=== PATIENT | female | born 1985 | race Caucasian/White ===

== ENCOUNTER 2017-11-29 08:59 | Inpatient (IN) | payer OTHER, MEDICAID ==
[~2017-11-29 08:59] MED LIST: Bupivacaine 0.5%/EPINEPHrine 1:200,000 50 ML MDV ONE; Meropenem 500 MG SDV ONE
[2017-11-29] MEDS ORDERED: Dextrose 5%-Lactated Ringers 1,000 ML IV SCH (10:00)
[2017-11-29] MEDS ORDERED: Acetaminophen 500 MG Tab PO ONE (10:00)
[2017-11-29] MEDS ORDERED: Acetaminophen Soln 650 MG/20.3 ML UD Cup PO ONE (10:00)
[2017-11-29] MEDS: Albuterol/Ipratropium 3.0-0.5 MG/3 ML Neb Soln NEB ONE ×2 (10:48→16:43)
[2017-11-29] MEDS ORDERED: ceFAZolin 2 GM in Premix Bag 1 BAG IV ONE ×4 (11:15)
[2017-11-29] MEDS ORDERED: Ropivacaine 38 ML, Dexamethasone 8 MG, EPINEPHrine 0.4 MG, Sodium Chloride 0.9% 39.6 ML NERVRT SCH ×4 (11:30)
[2017-11-29] MEDS ORDERED: Ketamine 500 MG/5 ML MDV IV SCH (11:30)
[2017-11-29] MEDS ORDERED: Lidocaine 0.4%/D5W 2 GM/500 ML BAG IV SCH (11:30)
[2017-11-29] MEDS ORDERED: Lidocaine 2% 100 MG/5 ML Syringe IVPUSH ONE (11:30)
[2017-11-29] MEDS ORDERED: fentaNYL 250 MCG/5 ML SDV ONE ×2 (11:35→14:17)
[2017-11-29] MEDS ORDERED: Rocuronium 50 MG/5 ML Vial ONE ×2 (11:36→14:16)
[2017-11-29] MEDS ORDERED: Neostigmine Methylsulfate 1 MG/ML 5 ML Syringe ONE (11:36)
[2017-11-29] MEDS ORDERED: Propofol 200 MG/20 ML SDV ONE (11:36)
[2017-11-29] MEDS ORDERED: Ondansetron 4 MG/2 ML SDV ONE (11:36)
[2017-11-29] MEDS ORDERED: Dexamethasone 4 MG/ML SDV ONE (11:36)
[2017-11-29] MEDS ORDERED: Linezolid 200 MG/100 ML Bag IRR ONE (14:03)
[2017-11-29] MEDS ORDERED: HYDROmorphone/Normal Saline 15 MG/30 ML PCA IV PRN (14:31)
[2017-11-29] MEDS ORDERED: Naloxone 0.4 MG/ML SDV IV PRN (14:38)
[2017-11-29] MEDS ORDERED: Lactated Ringers 1,000 ML ONE (14:46)
[2017-11-29] MEDS ORDERED: hydrOXYzine HCl 100 MG/2 ML SDV IM PRN (16:21)
[2017-11-29] MEDS ORDERED: hydrOXYzine HCl 25 MG Tab PO PRN (16:21)
[2017-11-29] MEDS ORDERED: Ondansetron 4 MG/2 ML SDV IV PRN (16:21)
[2017-11-29] MEDS ORDERED: Albuterol/Ipratropium 3.0-0.5 MG/3 ML Neb Soln INH PRN (16:22)
[2017-11-29] MEDS ORDERED: diphenhydrAMINE 25 MG Cap PO PRN (16:25)
[2017-11-29] MEDS ORDERED: Iron Sucrose Complex 500 MG in Sodium Chloride 0.9% 250 ML IV ONE (18:00)
[2017-11-29] MEDS: Dextrose 5%-Lactated Ringers 1,000 ML IV SCH (18:36)
[2017-11-29] MEDS ORDERED: Benzocaine/Cetylpyridinium/Menthol Lozenge MUCMEM PRN (20:13)
[2017-11-29] MEDS: traZODone 50 MG Tab PO SCH (20:36)
[2017-11-29] MEDS ORDERED: Scopolamine 1.5 MG Transdermal Patch TRDERM PRN (20:54)
[2017-11-29] MEDS ORDERED: Lactated Ringers 500 ML IV SCH (21:00)
[2017-11-29] MEDS: ceFAZolin 2 GM in Premix Bag 1 BAG IV SCH (21:54)
[2017-11-29] MEDS: Formoterol/Mometasone 200-5 MCG 8.8 GM Inhaler IH SCH (21:54)
[2017-11-30] MEDS: Dextrose 5%-Lactated Ringers 1,000 ML IV SCH ×2 (00:51→05:51)
[2017-11-30] MEDS: ceFAZolin 2 GM in Premix Bag 1 BAG IV SCH ×2 (05:51→12:08)
[2017-11-30] MEDS: Formoterol/Mometasone 200-5 MCG 8.8 GM Inhaler IH SCH ×2 (07:20→20:58)
--- NOTE | 2017-11-30 08:29 | PCM.SURGPN ---
- General Info Date of Service: 11/30/17 Date of Surgery/Procedure: 11/29/17 POD#: 1 Post-Op Diagnosis: S/P panniculectomy and incarcerated incisional hernia repair with mesh Admission Diagnosis/Problem: Hernia (Also, Pannus) Functional Status: Reports: Pain Controlled, Tolerating Diet, Ambulating, Urinating Pain Score: 3 - Review of Systems General: Reports: No Symptoms HEENT: Reports: No Symptoms Pulmonary: Reports: No Symptoms Cardiovascular: Reports: No Symptoms Gastrointestinal: Reports: Abdominal Pain (upper, midline pain is sore/achy) Genitourinary: Reports: No Symptoms Musculoskeletal: Reports: No Symptoms Skin: Reports: No Symptoms Neurological: Reports: No Symptoms Psychiatric: Reports: No Symptoms - Patient Data Vitals - Most Recent: Last Vital Signs Temp 36.1 C 11/30/17 07:36 Pulse 72 11/30/17 07:36 Resp 16 11/30/17 07:36 BP 107/52 L 11/30/17 07:36 Pulse Ox 93 L 11/30/17 07:53 Weight - Most Recent: 76.657 kg I&O - Last 24 Hours: Intake & Output 11/29/17 11/30/17 11/30/17 22:59 06:59 14:59 Intake Total 549 2708 Output Total 403 1125 400 Balance 146 1583 -400 Lab Results Last 24 Hrs: Laboratory Results - last 24 hr 11/29/17 11/29/17 11/29/17 Range/Units 09:35 09:35 11:09 WBC 6.8 (4.5-11.0) K/uL RBC 4.61 (3.30-5.50) M/uL Hgb 13.4 (12.0-15.0) g/dL Hct 41.1 (36.0-48.0) % MCV 89 (80-98) fL MCH 29 (27-31) pg MCHC 33 (32-36) % Plt Count 303 (150-400) K/uL Sodium 139 L (140-148) mmol/L Potassium 4.1 (3.6-5.2) mmol/L Chloride 107 (100-108) mmol/L Carbon Dioxide 25 (21-32) mmol/L Anion Gap 11.1 (5.0-14.0) mmol/L BUN 13 (7-18) mg/dL Creatinine 0.7 (0.6-1.0) mg/dL Est Cr Clr Drug Dosing 100.55 mL/min Estimated GFR (MDRD) > 60 (>60) Glucose 86 (74-106) mg/dL Calcium 8.3 L (8.5-10.1) mg/dL Phosphorus 3.6 (2.5-4.9) mg/dL Magnesium 2.0 (1.8-2.4) mg/dL Ferritin 15 (8-388) ng/ml Total Bilirubin 1.0 (0.2-1.0) mg/dL AST 21 (15-37) U/L ALT 36 (12-78) U/L Alkaline Phosphatase 117 H (46-116) U/L Total Protein 6.7 (6.4-8.2) g/dL Albumin 3.9 (3.4-5.0) g/dL Globulin 2.8 (2.3-3.5) g/dL Albumin/Globulin Ratio 1.4 (1.2-2.2) Urine HCG, Qual Negative Med Orders - Current: Current Medications Albuterol/Ipratropium (Duoneb 3.0-0.5 Mg/3 Ml) 3 ml INH ASDIRECTED PRN PRN Reason: Shortness of Breath Benzocaine/Menthol (Cepacol Sore Throat) 1 lozenge MUCMEM ASDIRECTED PRN PRN Reason: Sore Throat Last Admin: 11/29/17 20:40 Dose: 1 jose Diphenhydramine HCl (Benadryl) 50 mg PO BEDTIME PRN PRN Reason: SLEEP Escitalopram Oxalate (Lexapro) 20 mg PO DAILY ROG[facility]IO Hydromorphone HCl (Dilaudid Care Management Assistant 15 Mg In Ns 30 Ml) 0 mg IV ASDIRECTED PRN; Protocol PRN Reason: Pain Last Admin: 11/29/17 14:45 Dose: 0.3 mg Hydromorphone HCl (Dilaudid) 2 - 4 mg PO Q4H PRN PRN Reason: Pain Hydroxyzine HCl (Vistaril) 100 mg IM Q4H PRN PRN Reason: PAIN Hydroxyzine HCl (Atarax) 100 mg PO Q4H PRN PRN Reason: PAIN Dextrose/Lactated Ringer's (Dextrose 5%-Lactated Ringers) 1,000 mls @ 175 mls/ hr IV ASDIRECTED [facility] Last Admin: 11/30/17 05:51 Dose: 175 mls/hr Cefazolin Sodium/Dextrose 2 gm (/ Premix) 50 mls @ 100 mls/hr IV Q8H [facility] Stop: 11/30/17 13:29 Last Admin: 11/30/17 05:51 Dose: 100 mls/hr Iron Sucrose 500 mg/ Sodium (Chloride) 275 mls @ 68.75 mls/hr IV ONETIME ONE Stop: 11/30/17 19:59 Mometasone Furoate/Formoterol Fumar (Dulera 200-5 Mcg) 2 puff IH BIDRT [facility] Last Admin: 11/30/17 07:20 Dose: 2 puff Mupirocin (Bactroban Oint) 0 gm TOP BID [facility] Naloxone HCl (Narcan) 0.1 mg IV ASDIRECTED PRN PRN Reason: decreased respiratory rate Check Scopolamine (Patch Daily) 1 each .XX DAILY [facility] Ondansetron HCl (Zofran) 4 mg IV Q4H PRN PRN Reason: N/V Scopolamine (Transderm-Scop) 1.5 mg TRDERM Q72H PRN PRN Reason: Dizziness Last Admin: 11/29/17 21:53 Dose: 1.5 mg Trazodone HCl (Trazodone) 50 mg PO BEDTIME [facility] Last Admin: 11/29/17 20:36 Dose: Not Given Valacyclovir HCl (Valtrex) 1,000 mg PO DAILY [facility] Discontinued Medications Acetaminophen (Tylenol) 1,000 mg PO ONETIME ONE Stop: 11/29/17 10:01 Last Admin: 11/29/17 09:53 Dose: 1,000 mg Albuterol/Ipratropium (Duoneb 3.0-0.5 Mg/3 Ml) 3 ml NEB ONETIME ONE Stop: 11/29/17 11:01 Last Admin: 11/29/17 16:43 Dose: Not Given Bupivacaine HCl/Epinephrine Bitart (Marcaine 0.5%/Epinephrine 1:200,000) Confirm Administered Dose 50 ml .ROUTE .STK-MED ONE Stop: 11/29/17 08:06 Last Admin: 11/29/17 13:48 Dose: 15 ml Ropivacaine 38 ml/Dexamethasone 8 mg/Epinephrine HCl 0.4 mg/ Sodium Chloride 39.6 ml 0 ml NERVRT ASDIRECTED [facility] Last Admin: 11/29/17 13:17 Dose: 80 syringe Dexamethasone (Dexamethasone) Confirm Administered Dose 4 mg .ROUTE .[facility] ONE Stop: 11/29/17 11:37 Fentanyl (Sublimaze) Confirm Administered Dose 250 mcg .ROUTE .[facility] ONE Stop: 11/29/17 11:36 Fentanyl (Sublimaze) Confirm Administered Dose 250 mcg .ROUTE .[facility] ONE Stop: 11/29/17 14:18 Glycopyrrolate () Confirm Administered Dose 1 mg .ROUTE .[facility] ONE Stop: 11/29/17 11:37 Dextrose/Lactated Ringer's (Dextrose 5%-Lactated Ringers) 1,000 mls @ 100 [facility]ls[facility] Admin: 11/29/17 10:08 Dose: 100 mls/hr Cefazolin Sodium/Dextrose 2 gm (/ Premix) 50 mls @ 100 mls/hr IV ONETIME ONE Stop: 11/29/17 11:44 Last Admin: 11/29/17 12:59 Dose: 100 mls/hr Lidocaine HCl/Dextrose (Lidocaine 2 Gm/D5w 500 Ml) 2 gm in 500 mls @ 22.5 mls/ hr IV .[id number] [facility] PRN Reason: 1.5 MG/MIN Stop: 11/30/17 12:00 Last Admin: 11/29/17 16:33 Dose: 1.5 mg/min, 22.5 mls/hr Ketamine HCl 100 mg/ Sodium (Chloride) 100 mls @ 16.5 mls/hr IV ASDIRECTED [facility] PRN Reason: 5 MCG/KG/MIN Linezolid (Zyvox) Confirm Administered Dose 100 mls @ as directed .ROUTE .[facility] ONE Stop: 11/29/17 10:54 Lactated Ringer's (Ringers, Lactated) Confirm Administered Dose 1,000 mls @ as directed .ROUTE .[facility] ONE Stop: 11/29/17 14:47 Iron Sucrose 500 mg/ Sodium (Chloride) 275 mls @ 68.75 mls/hr IV ONETIME ONE Stop: 11/29/17 21:59 Last Admin: 11/29/17 18:07 Dose: 68.75 mls/hr Lactated Ringer's (Ringers, Lactated) 500 mls @ 500 mls/hr IV ASDIRECTED [facility]OG[facility] Ketamine HCl (Ketalar) 28 mg IV ASDIRECTED [facility] Lidocaine HCl (Xylocaine 2%) 95 mg IVPUSH ONETIME ONE Stop: 11/29/17 11:31 Last Admin: 11/29/17 16:33 Dose: Not Given Linezolid (Zyvox) 200 mg IRR .STK-MED ONE Stop: 11/29/17 14:04 Last Admin: 11/29/17 14:03 Dose: 200 mg Meropenem (Merrem) Confirm Administered Dose 500 mg .ROUTE .STK-MED ONE Stop: 11/29/17 08:05 Last Admin: 11/29/17 14:03 Dose: 500 mg Neostigmine Methylsulfate (Neostigmine) Confirm Administered Dose 5 mg .ROUTE .STK-MED ONE Stop: 11/29/17 11:37 Ondansetron HCl (Zofran) Confirm Administered Dose 4 mg .ROUTE .STK-MED ONE Stop: 11/29/17 11:37 Propofol (Diprivan 20 Ml) Confirm Administered Dose 200 mg .ROUTE .STK-MED ONE Stop: 11/29/17 11:37 Rocuronium [place] (Zemuron) Confirm Administered Dose 50 mg .ROUTE .STK-MED ONE Stop: 11/29/17 11:37 Rocuronium [place] (Zemuron) Confirm Administered Dose 50 mg .ROUTE .STK-MED ONE Stop: 11/29/17 14:17 - Exam Wound/Incisions: Healing Well, Dressing Dry and Intact, Drainage ([address] draining serosanginous liquid) General: Alert, Oriented, Cooperative, No Acute Distress HEENT: Pupils Equal Lungs: Clear to Auscultation, Normal Respiratory Effort Cardiovascular: Regular Rate, Regular Rhythm GI/Abdominal Exam: Normal Bowel Sounds, Soft, No Distention Extremities: Non-Tender, No Pedal Edema Skin: Warm, Dry, Intact Neurological: No New Focal Deficit Psy/Mental Status: Alert, Normal Affect, Normal Mood - Problem List Review Problem List Initiated/Reviewed/Updated: Yes - My Orders Last 24 Hours: Active Orders 24 hr Category Date Time Status Admission Status [Patient Status] [ADT] Routine ADT 11/29/17 14:40 Active Ambulate [RC] QID Care 11/29/17 16:21 Active Cardiac Monitoring Discontinue [RC] Click to Edit Care 11/30/17 07:30 Active Communication Order [RC] BID Care 11/30/17 09:00 Active Drain Management [RC] ASDIRECTED Care 11/29/17 16:24 Active Elevate Head of Bed [Head of Bed Elevation] [RC] Care 11/29/17 16:22 Active ASDIRECTED Insert Joseph Catheter [Insert Urinary Catheter] [OM.PC] Care 11/29/17 16:30 Ordered Q24H Intake and Output [RC] ASDIRECTED Care 11/29/17 16:25 Active Overnight Pulse Oximetry [RC] Click to Edit Care 11/29/17 16:17 Active RT Aerosol Therapy [RC] ASDIRECTED Care 11/29/17 11:00 Active RT Incentive Spirometry [RC] ASDIRECTED Care 11/29/17 16:23 Active Telemetry Monitoring [Cardiac Monitoring] [RC] .As Care 11/29/17 14:40 Active Directed Turn, Cough, Deep Breathe [RC] .PRN Care 11/29/17 16:23 Active Up to Chair [RC] QID Care 11/29/17 16:21 Active NPO [Nothing Per Oral Diet] [DIET] Diet 11/29/17 Dinner Active Albuterol/Ipratropium [DuoNeb 3.0-0.5 MG/3 ML] Med 11/29/17 16:22 Active 3 ml INH ASDIRECTED PRN Benzocaine/Cetylpyrd/Menthol [Cepacol Sore Throat] Med 11/29/17 20:13 Active 1 lozenge MUCMEM ASDIRECTED PRN Dextrose 5%-Lactated Ringers 1,000 ml Med 11/29/17 16:30 Active IV ASDIRECTED Escitalopram [Lexapro] Med 11/30/17 09:00 Active 20 mg PO DAILY HYDROmorphone [Dilaudid] Med 11/30/17 08:03 Active 2 - 4 mg PO Q4H PRN HYDROmorphone/Normal Saline [Dilaudid FRUIT HARVESTER 15 MG in NS Med 11/29/17 14:31 Active 30 ML] See Protocol IV ASDIRECTED PRN Iron Sucrose Complex [Venofer] 500 mg Med 11/30/17 16:00 Active Sodium Chloride 0.9% [Normal Saline] 250 ml IV ONETIME Mometasone/Formoterol [Dulera 200-5 MCG] Med 11/29/17 21:00 Active 2 puff IH BIDRT Mupirocin Oint [Bactroban Oint] Med 11/30/17 09:00 Active 0 gm TOP BID Naloxone [Narcan] Med 11/29/17 14:38 Active 0.1 mg IV ASDIRECTED PRN Non-Formulary Medication [NF Drug] Med 11/30/17 09:00 Active 1 each .XX DAILY Ondansetron [Zofran] Med 11/29/17 16:21 Active 4 mg IV Q4H PRN Scopolamine [Transderm-Scop] Med 11/29/17 20:54 Active 1.5 mg TRDERM Q72H PRN ceFAZolin [Ancef] 2 gm Med 11/29/17 21:00 Active Premix Bag 1 bag IV Q8H diphenhydrAMINE [Benadryl] Med 11/29/17 16:25 Active 50 mg PO BEDTIME PRN hydrOXYzine HCl [Atarax] Med 11/29/17 16:21 Active 100 mg PO Q4H PRN hydrOXYzine HCl [Vistaril] Med 11/29/17 16:21 Active 100 mg IM Q4H PRN traZODone Med 11/29/17 21:00 Active 50 mg PO BEDTIME valACYclovir [Valtrex] Med 11/30/17 09:00 Active 1,000 mg PO DAILY Pulse Oximetry Continuous Monitoring [OM.PC] Routine Oth 11/29/17 14:40 Ordered Sequential Compression Device [OM.PC] Routine Oth 11/29/17 09:30 Ordered Sequential Compression Device [OM.PC] Routine Oth 11/29/17 16:22 Ordered Medication Orders Albuterol/Ipratropium (Duoneb 3.0-0.5 Mg/3 Ml) 3 ml INH ASDIRECTED PRN PRN Reason: Shortness of Breath Benzocaine/Menthol (Cepacol Sore Throat) 1 lozenge MUCMEM ASDIRECTED PRN PRN Reason: Sore Throat Last Admin: 11/29/17 20:40 Dose: 1 jose Diphenhydramine HCl (Benadryl) 50 mg PO BEDTIME PRN PRN Reason: SLEEP Escitalopram Oxalate (Lexapro) 20 mg PO DAILY [facility] Hydromorphone HCl (Dilaudid Care Management Assistant 15 Mg In Ns 30 Ml) 0 mg IV ASDIRECTED PRN; Protocol PRN Reason: Pain Last Admin: 11/29/17 14:45 Dose: 0.3 mg Hydromorphone HCl (Dilaudid) 2 - 4 mg PO Q4H PRN PRN Reason: Pain Hydroxyzine HCl (Vistaril) 100 mg IM Q4H PRN PRN Reason: PAIN Hydroxyzine HCl (Atarax) 100 mg PO Q4H PRN PRN Reason: PAIN Dextrose/Lactated Ringer's (Dextrose 5%-Lactated Ringers) 1,000 mls @ 175 mls/ hr IV ASDIRECTED [facility] Last Admin: 11/30/17 05:51 Dose: 175 mls/hr Infusion: 11/30/17 05:51 Dose: 175 mls/hr Admin: 11/30/17 00:51 Dose: 175 mls/hr Infusion: 11/30/17 00:19 Dose: 175 mls/hr Admin: 11/29/17 18:36 Dose: 175 mls/hr Cefazolin Sodium/Dextrose 2 gm (/ Premix) 50 mls @ 100 mls/hr IV Q8H ROG[facility]IO Stop: 11/30/17 13:29 Last Admin: 11/30/17 05:51 Dose: 100 mls/hr Infusion: 11/29/17 22:24 Dose: 100 mls/hr Admin: 11/29/17 21:54 Dose: 100 mls/hr Iron Sucrose 500 mg/ Sodium (Chloride) 275 mls @ 68.75 mls/hr IV ONETIME ONE Stop: 11/30/17 19:59 Mometasone Furoate/Formoterol Fumar (Dulera 200-5 Mcg) 2 puff IH BIDRT [facility] Last Admin: 11/30/17 07:20 Dose: 2 puff Admin: 11/29/17 21:54 Dose: 2 puff Mupirocin (Bactroban Oint) 0 gm TOP BID [facility]OG[facility]IO Naloxone HCl (Narcan) 0.1 mg IV ASDIRECTED PRN PRN Reason: decreased respiratory rate Check Scopolamine (Patch Daily) 1 each .XX DAILY [facility] Ondansetron HCl (Zofran) 4 mg IV Q4H PRN PRN Reason: N/V Scopolamine (Transderm-Scop) 1.5 mg TRDERM Q72H PRN PRN Reason: Dizziness Last Admin: 11/29/17 21:53 Dose: 1.5 mg Trazodone HCl (Trazodone) 50 mg PO BEDTIME ROG[facility]IO Last Admin: 11/29/17 20:36 Dose: Not Given Valacyclovir HCl (Valtrex) 1,000 mg PO DAILY ROGELIO - Plan Plan (Free Text/Narrative):: Emilee Martell is a 32 year old female who is S/P 1 day of panniculectomy and hernia repair. This morning the patient is doing well. She has minimal pain an is able to ambulate in the halls. She would like to eat today. She will stay one more day for transfer to PO pain medications and her iron infusion. She is urinating well, will take out joseph. She had no further concerns or questions at this time. # S/P Panniculectomy- The patient has minimal pain. She is passing gas but not stool as of yet. She will be progressed to PO pain medications. - Hydromorphone PRN - Tylenol 650 Q4 hr # Chronic issues: - Continue home medications VTE PPX- Pts Megan score is 3. Pt advised to continue moving around. SCD's in bed. Pneumonia PPX- Pt advised to walk around and use incentive spirometry 10 times per hour Code status: Full Fluids: 30 ml/hr LR Diet: Full diet Nausea: Zofran Q4hr PRN Bowel regimen: None at this time Dispo: Patient will likely go home tomorrow. This chart was scribed for Dr. Segal by: Immanuel Donohue, Ms3 Pg # [phone]
[2017-11-30] MEDS ORDERED: Dextrose 5%-Lactated Ringers 1,000 ML IV SCH (08:38)
[2017-11-30] MEDS: valACYclovir 1,000 MG Tab PO SCH (09:00)
[2017-11-30] MEDS: Mupirocin Oint 22 GM Tube TOP SCH ×2 (09:01→20:59)
[2017-11-30] MEDS: Escitalopram 20 MG Tab PO SCH (09:01)
[2017-11-30] MEDS: CHECK SCOPOLAMINE PATCH DAILY SCH (10:36)
[2017-11-30] MEDS: Acetaminophen 325 MG Tab PO PRN ×3 (10:39→19:06)
[2017-11-30] MEDS: HYDROmorphone 2 MG Tab PO PRN ×3 (10:40→19:05)
[2017-11-30] MEDS ORDERED: Iron Sucrose Complex 500 MG in Sodium Chloride 0.9% 250 ML IV ONE (16:00)
[2017-11-30] MEDS: traZODone 50 MG Tab PO SCH (20:58)
[2017-12-01] MEDS: HYDROmorphone 2 MG Tab PO PRN ×2 (03:35→10:10)
[2017-12-01] MEDS: Acetaminophen 325 MG Tab PO PRN ×2 (07:21→11:37)
[2017-12-01] MEDS: Formoterol/Mometasone 200-5 MCG 8.8 GM Inhaler IH SCH (07:27)
[2017-12-01] MEDS: Escitalopram 20 MG Tab PO SCH (09:26)
[2017-12-01] MEDS: CHECK SCOPOLAMINE PATCH DAILY SCH (09:29)
[2017-12-01] MEDS: valACYclovir 1,000 MG Tab PO SCH (09:30)
[2017-12-01] MEDS: Mupirocin Oint 22 GM Tube TOP SCH (09:30)
--- NOTE | 2017-12-01 09:42 | PCM.DCSUM1 ---
Discharge Summary - Hospital Course HPI Initial Comments: Emilee Martell is a 32 year old female who is S/P 1 day of panniculectomy and hernia repair. - Discharge Data Discharge Date: 12/01/17 Discharge Disposition: Home, Self-Care 01 Condition: Good - Patient Summary/Data Operative Procedure(s) Performed: Panniculectomy with hernia repair Complications: None Consults: None - Patient Instructions Diet: Usual Diet as Tolerated, Drink 8-10+ Glasses/Day Activity: As Tolerated, No Lifting Over 10 Pounds (for 6 weeks ) Driving: Do Not Drive (while on pain medications and at least for 2 weeks ) Showering/Bathing: May Shower Wound/Incision Care: Keep Operative Site/Wound Site Clean and Dry Notify Provider of: Fever, Increased Pain, Swelling and Redness, Nausea and/or Vomiting Other/Special Instructions: Strip, empty, measure and record DAMIAN drain 4 times a day - bring record of DAMIAN drainage to clinic appointment. Use incentive inspirometer 10 times every hour while awake for 1 week. - Discharge Plan Prescriptions/Med Rec: HYDROmorphone [Dilaudid] 2 - 4 mg PO Q4H PRN #40 tablet PRN Reason: Pain Home Medications: Home Meds Acetaminophen [Tylenol Solution] 620.8 ml PO Q6H PRN 11/25/17 [History] Calcium Citrate/Vitamin D3 [Calcium Citrate - Vit D Caplet] 1 each PO BID [History] Clindamycin Phos/Benzoyl Perox [Benzaclin Gel] 1 applic TOP DAILY 11/25/17 [ History] Clotrimazole [Lotrimin AF 1% Crm] 1 applic TOP BID 11/25/17 [History] Cyanocobalamin (Vitamin B-12) [Vitamin B-12] 1,000 mcg SL DAILY 11/25/17 [ History] Doxylamine Succinate [Unisom] 1 - 2 tab PO ASDIRECTED 11/25/17 [History] Escitalopram [Lexapro] 20 mg PO ASDIRECTED 11/25/17 [History] Fluticasone/Salmeterol [Advair 250-50 Diskus] 1 puff INH BID 11/25/17 [History] Levonorgestrel [Mirena] 20 mcg VAG ASDIRECTED 11/25/17 [History] Minocycline [Minocin] 50 mg PO DAILY 11/25/17 [History] Pediatric Multivitamin 1 tab PO BID 11/25/17 [History] Propranolol [Inderal] 10 mg PO ASDIRECTED 11/25/17 [History] Vitamin B Complex [B Complex] 1 each PO DAILY 11/25/17 [History] hydrOXYzine Pamoate [Vistaril] 25 mg PO ASDIRECTED 11/25/17 [History] valACYclovir [Valtrex] 1,000 mg PO DAILY 11/25/17 [History] Acetaminophen [Tylenol] 650 mg PO Q4H PRN tablet 12/01/17 [Rx] HYDROmorphone [Dilaudid] 2 - 4 mg PO Q4H PRN #40 tablet 12/01/17 [Rx] Referrals: Tiffanie Pond PA-C [Physician Family Educator] - 12/10/17 9:00 am - Discharge Summary/Plan Comment DC Time >30 min.: No Discharge Summary/Plan Comment: Emilee Martell is a 32 year old female who is S/P 1 day of panniculectomy and hernia repair. POD #1 the patient was transfered to PO pain medications with good control of her pain. On POD #2 the patient had minimal pain. She was comfortable with going home. She was passing gas, urinating well, and tolerating a full diet. She shall return with any signs or symptoms of infection , fever, intractable pain or any other concerns. She had no other questions at this time. - Patient Data Vitals - Most Recent: Last Vital Signs Temp 36.6 C 12/01/17 07:00 Pulse 65 12/01/17 07:00 Resp 18 12/01/17 07:00 BP 110/68 12/01/17 07:00 Pulse Ox 96 12/01/17 07:00 Weight - Most Recent: 76.657 kg I&O - Last 24 hours: Intake & Output 11/30/17 12/01/17 12/01/17 22:59 06:59 14:59 Intake Total 1140 1300 Output Total 1130 570 Balance 10 730 Med Orders - Current: Current Medications Acetaminophen (Tylenol) 650 mg PO Q4H PRN PRN Reason: Headache/Pain Last Admin: 12/01/17 07:21 Dose: 650 mg Albuterol/Ipratropium (Duoneb 3.0-0.5 Mg/3 Ml) 3 ml INH ASDIRECTED PRN PRN Reason: Shortness of Breath Benzocaine/Menthol (Cepacol Sore Throat) 1 lozenge MUCMEM ASDIRECTED PRN PRN Reason: Sore Throat Last Admin: 11/29/17 20:40 Dose: 1 jose Diphenhydramine HCl (Benadryl) 50 mg PO BEDTIME PRN PRN Reason: SLEEP Last Admin: 11/30/17 19:07 Dose: 50 mg Escitalopram Oxalate (Lexapro) 20 mg PO DAILY [facility] Last Admin: 12/01/17 09:26 Dose: 20 mg Hydromorphone HCl (Dilaudid) 2 - 4 mg PO Q4H PRN PRN Reason: Pain Last Admin: 12/01/17 03:35 Dose: 2 mg Hydroxyzine HCl (Vistaril) 100 mg IM Q4H PRN PRN Reason: PAIN Hydroxyzine HCl (Atarax) 100 mg PO Q4H PRN PRN Reason: PAIN Mometasone Furoate/Formoterol Fumar (Dulera 200-5 Mcg) 2 puff IH BIDRT [facility] Last Admin: 12/01/17 07:27 Dose: 2 puff Mupirocin (Bactroban Oint) 0 gm TOP BID [facility] Last Admin: 12/01/17 09:30 Dose: 1 applic Check Scopolamine (Patch Daily) 1 each .XX DAILY [facility] Last Admin: 12/01/17 09:29 Dose: Not Given Scopolamine (Transderm-Scop) 1.5 mg TRDERM Q72H PRN PRN Reason: Dizziness Last Admin: 11/29/17 21:53 Dose: 1.5 mg Trazodone HCl (Trazodone) 50 mg PO BEDTIME [facility] Last Admin: 11/30/17 20:58 Dose: Not Given Valacyclovir HCl (Valtrex) 1,000 mg PO DAILY [facility] Last Admin: 12/01/17 09:30 Dose: Not Given Discontinued Medications Acetaminophen (Tylenol) 1,000 mg PO ONETIME ONE Stop: 11/29/17 10:01 Last Admin: 11/29/17 09:53 Dose: 1,000 mg Albuterol/Ipratropium (Duoneb 3.0-0.5 Mg/3 Ml) 3 ml NEB ONETIME ONE Stop: 11/29/17 11:01 Last Admin: 11/29/17 16:43 Dose: Not Given Bupivacaine HCl/Epinephrine Bitart (Marcaine 0.5%/Epinephrine 1:200,000) Confirm Administered Dose 50 ml .ROUTE .STK-MED ONE Stop: 11/29/17 08:06 Last Admin: 11/29/17 13:48 Dose: 15 ml Ropivacaine 38 ml/Dexamethasone 8 mg/Epinephrine HCl 0.4 mg/ Sodium Chloride 39.6 ml 0 ml NERVRT ASDIRECTED [facility] Last Admin: 11/29/17 13:17 Dose: 80 syringe Dexamethasone (Dexamethasone) Confirm Administered Dose 4 mg .ROUTE .[facility] ONE Stop: 11/29/17 11:37 Fentanyl (Sublimaze) Confirm Administered Dose 250 mcg .ROUTE .STK-MED ONE Stop: 11/29/17 11:36 Fentanyl (Sublimaze) Confirm Administered Dose 250 mcg .ROUTE .[facility] ONE Stop: 11/29/17 14:18 Glycopyrrolate () Confirm Administered Dose 1 mg .ROUTE .STK-MED ONE Stop: 11/29/17 11:37 Hydromorphone HCl (Dilaudid Hazmat Technician 15 Mg In Ns 30 Ml) 0 mg IV ASDIRECTED PRN; Protocol PRN Reason: Pain Last Admin: 11/29/17 14:45 Dose: 0.3 mg Dextrose/Lactated Ringer's (Dextrose 5%-Lactated Ringers) 1,000 mls @ 100 mls/ hr IV ASDIRECTED [facility] Last Admin: 11/29/17 10:08 Dose: 100 mls/hr Cefazolin Sodium/Dextrose 2 gm (/ Premix) 50 mls @ 100 mls/hr IV ONETIME ONE Stop: 11/29/17 11:44 Last Admin: 11/29/17 12:59 Dose: 100 mls/hr Lidocaine HCl/Dextrose (Lidocaine 2 Gm/D5w 500 Ml) 2 gm in 500 mls @ 22.5 mls/ hr IV .[id number] [facility] PRN Reason: 1.5 MG/MIN Stop: 11/30/17 12:00 Last Admin: 11/29/17 16:33 Dose: 1.5 mg/min, 22.5 mls/hr Ketamine HCl 100 mg/ Sodium (Chloride) 100 mls @ 16.5 mls/hr IV ASDIRECTED [facility] PRN Reason: 5 MCG/KG/MIN Linezolid (Zyvox) Confirm Administered Dose 100 mls @ as directed .ROUTE .STK- MED ONE Stop: 11/29/17 10:54 Lactated Ringer's (Ringers, Lactated) Confirm Administered Dose 1,000 mls @ as directed .ROUTE .STK-MED ONE Stop: 11/29/17 14:47 Dextrose/Lactated Ringer's (Dextrose 5%-Lactated Ringers) 1,000 mls @ 175 mls/ hr IV ASDIRECTED [facility] Last Admin: 11/30/17 05:51 Dose: 175 mls/hr Cefazolin Sodium/Dextrose 2 gm (/ Premix) 50 mls @ 100 mls/hr IV Q8H [facility] Stop: 11/30/17 13:29 Last Admin: 11/30/17 12:08 Dose: 100 mls/hr Iron Sucrose 500 mg/ Sodium (Chloride) 275 mls @ 68.75 mls/hr IV ONETIME ONE Stop: 11/29/17 21:59 Last Admin: 11/29/17 18:07 Dose: 68.75 mls/hr Iron Sucrose 500 mg/ Sodium (Chloride) 275 mls @ 68.75 mls/hr IV ONETIME ONE Stop: 11/30/17 19:59 Last Admin: 11/30/17 16:30 Dose: 68.75 mls/hr Lactated Ringer's (Ringers, Lactated) 500 mls @ 500 mls/hr IV ASDIRECTED [facility] Dextrose/Lactated Ringer's (Dextrose 5%-Lactated Ringers) 1,000 mls @ 100 mls/ hr IV ASDIRECTED [facility] Ketamine HCl (Ketalar) 28 mg IV ASDIRECTED [facility] Lidocaine HCl (Xylocaine 2%) 95 mg IVPUSH ONETIME ONE Stop: 11/29/17 11:31 Last Admin: 11/29/17 16:33 Dose: Not Given Linezolid (Zyvox) 200 mg IRR .STK-MED ONE Stop: 11/29/17 14:04 Last Admin: 11/29/17 14:03 Dose: 200 mg Meropenem (Merrem) Confirm Administered Dose 500 mg .ROUTE .STK-MED ONE Stop: 11/29/17 08:05 Last Admin: 11/29/17 14:03 Dose: 500 mg Naloxone HCl (Narcan) 0.1 mg IV ASDIRECTED PRN PRN Reason: decreased respiratory rate Neostigmine Methylsulfate (Neostigmine) Confirm Administered Dose 5 mg .ROUTE .STK-MED ONE Stop: 11/29/17 11:37 Ondansetron HCl (Zofran) Confirm Administered Dose 4 mg .ROUTE .STK-MED ONE Stop: 11/29/17 11:37 Ondansetron HCl (Zofran) 4 mg IV Q4H PRN PRN Reason: N/V Propofol (Diprivan 20 Ml) Confirm Administered Dose 200 mg .ROUTE .STK-MED ONE Stop: 11/29/17 11:37 Rocuronium Glade (Zemuron) Confirm Administered Dose 50 mg .ROUTE .STK-MED ONE Stop: 11/29/17 11:37 Rocuronium Glade (Zemuron) Confirm Administered Dose 50 mg .ROUTE .ST-MED ONE Stop: 11/29/17 14:17 *Q Meaningful Use (DIS) - VTE *Q VTE Criteria *Q: - Stroke *Q Stroke Criteria *Q: - AMI *Q AMI Criteria *Q:
--- NOTE | 2017-12-06 14:20 | OR ---
DATE OF PROCEDURE: 11/29/2017 PREOPERATIVE DIAGNOSES: 1. Incarcerated incisional hernia. 2. Chronic panniculitis. POSTOPERATIVE DIAGNOSES: 1. Incarcerated incisional hernia. 2. Chronic panniculitis. 3. Incarcerated umbilical hernia. PROCEDURE PERFORMED: 1. Open repair of incarcerated incisional hernia with mesh (80817, 41612). 2. Open repair of incarcerated umbilical hernia (81191). 3. Panniculectomy (69296). ANESTHESIA: General. CAGE SUPERVISOR: 1. Tiffanie Pond PA-C. 2. VIOLET Michel3. INDICATION FOR PROCEDURE: The patient presents with a chronically inflamed abdominal pannus, along with associated incarcerated incisional hernia, the latter appears to be related to a previous trocar site. Plan is to proceed with repair of the hernia, most likely with mesh plug takedown technique, along with concurrent panniculectomy. Potential risks of the procedure including bleeding, infection, injury to underlying viscera, possible recurrence of the hernia or infection of the mesh were all reviewed, and the patient wishes to proceed. DETAILS OF PROCEDURE: The patient was taken to the operating room, and after general endotracheal anesthesia was induced, a Gonzalez catheter was inserted and the abdomen prepped and draped. Using the continuous ultrasound guidance, bilateral mid abdominal, transversus abdominis plane blocks were then placed, using the standard solution. Initially, the area of the herniation somewhat superior to the umbilicus was then encountered. This was incised transversely, and this continued down around into the area of the hernia sac, which also contained preperitoneal fat. The latter was excised flush with the underlying fascia, and the defect measured around 3-4 mm. A medium mesh plug was then reduced in terms of volume by cutting its internal petals, then placed into the defect and fixed circumferentially with horizontal mattress sutures of 0 Vicryl stitch. The primary defect was then also enclosed with [id number] stitch of #1 Vicryl stitch. That incision was then separately closed with 3-0 and 4-0 Vicryl stitch and then ashley for the skin. The panniculectomy incision was then made, which included a broad transversely oriented ellipse and continued down through the skin and subcutaneous tissue. At the center of the area, the patient was noted to have an umbilical hernia, which also did contain some incarcerated preperitoneal fat. The latter was excised, along with the overlying pannus. The hernia was repaired with a [id number]-ef-dxdgo stitch of #1 Vicryl stitch. The pannus was reflected off the abdominal wall and delivered from the field. It measured 2.2 pounds. This incision was then drained with 2 Supa-Eddy drains placed superior to the main incision, in each direction, and then closed with 3-0 and 4-0 Vicryl stitch deep and ashley for the skin. Dressing was applied. The patient was taken to the recovery room in satisfactory condition. Physician neurology physician assistant, Tiffanie Pond, played an essential role in assisting in this case, helping to position the patient, retract structures as needed, as well as suturing and cutting sutures when indicated. Her presence improved patient safety and decreased operative time. Magnus Segal MD /[id number]
== END 2017-12-01 12:00 | disposition home or self-care (01) | DRG 988 ==
LOC: JP.SDS 08:59 → JP.MS 08:59 → UNDOADMIN 08:59 → JP.2SS 08:59 → EDSTATUS 09:00 → JP.2SS 14:40 → JP.MS 14:40
PROVIDERS: ADMIT Surgery; ATTEND Surgery
PROC: 0HB7XZZ Excision of Abdomen Skin, External Approach (ICD-10-PCS; principal; 2017-11-29)
PROC: 0WUF0JZ Supplement Abdominal Wall with Synthetic Substitute, Open Approach (ICD-10-PCS; 2017-11-29)
PROC: 0WQF0ZZ Repair Abdominal Wall, Open Approach (ICD-10-PCS; 2017-11-29)
PROC: 3E0T3BZ Introduction of Anesthetic Agent into Peripheral Nerves and Plexi, Percutaneous Approach (ICD-10-PCS; 2017-11-29)
DX: E65 Localized adiposity (principal); K43.0 Incisional hernia with obstruction, without gangrene; K42.0 Umbilical hernia with obstruction, without gangrene; Z98.84 Bariatric surgery status; E53.8 Deficiency of other specified B group vitamins; F41.9 Anxiety disorder, unspecified; F41.0 Panic disorder [episodic paroxysmal anxiety]
CPT/HCPCS: 36415; 80053; 81025; 82728; 83735; 84100; 85027; 88302; 94640-76; 94664; A9270-GY; C1781; J0171; J0690; J1100; J1170; J1756; J2001; J2020; J2185; J2405; J2704; J2795; J3010; J7030; J7042; J7050; J7120; J7620